=== PATIENT | female | born 1970 | race Caucasian/White ===

== ENCOUNTER → 2017-01-07 | Outpatient (CLI) | payer BC ==
[~2017-01-07] MED LIST: AMIT25TA9 PO; IBUP200C11 PO; LINA1CAP PO; NXM/40 PO; PANCCAP2 PO
--- NOTE | 2017-01-07 11:06 | DIAGNOSTIC IMAGING REPORT ---
MANDIBLE 4 VIEWS CLINICAL HISTORY: Left-sided facial mass/lump. FINDINGS: 4 views of the left mandible are obtained. No prior studies are available for comparison at the time of dictation. The skeletal structures are well mineralized. No fracture is seen. There is no evidence of bony mass. The temporomandibular joints appear maintained. The visualized paranasal sinuses appear clear. The bony orbits are intact as imaged. The mastoid air cells appear clear. The imaged calvarium appears preserved. IMPRESSION: Unremarkable radiographic assessment of the mandible. Electronically signed by: Christiano Briseno M.D. 01/07/2017 11:05 AM Dictated Date/Time: 01/07/2017 11:03 AM
== END | disposition home or self-care (01) ==
LOC: C.RADBC 10:32
PROVIDERS: ATTEND Family Medicine
DX: R22.0 Localized swelling, mass and lump, head (principal)

== ENCOUNTER → 2017-03-12 | Outpatient (CLI) | payer BC ==
[~2017-03-12] MED LIST changes: +GADAVIST IV PRN
--- NOTE | 2017-03-13 08:14 | MAMMOGRAPHY REPORT ---
BREAST MRI OF BOTH BREASTS : 03/12/2017 CLINICAL HISTORY: 46-year-old woman found to have a suspicious cluster of microcalcifications within the lateral left breast which was biopsied 12/10/2016 and yielded DCIS. Subsequent needle localiza tion 3 in the left breast yielded 2 areas of DCIS and one area of ADH. Patient presents for MRI ev aluation to assess extent of disease and rule out contralateral disease. COMPARISON: Comparison is made to exams dated: 08/23/2009 mammogram - [facility], 09/25/2009 l ocalization, and 09/25/2009 specimen - [facility]; prior screening mammograms date d 07/27/2010, 07/29/2011, 07/31/2012, 08/04/2013, 08/05/2014, 08/18/2015, 09/12/2015, 03/12/2016, di agnostic mammogram and ultrasound dated 11/28/2016, stereotactic biopsy dated 12/10/2016 and needle localization dated 01/16/2017. TECHNIQUE: Using a 1.5 Kindra magnet and dedicated breast coil, multisequence axial images were obtai jose alfredo through the breasts. After uneventful IV administration of 5.5 mL of Gadavist, dynamic multipha se contrast-enhanced axial images, and sagittal postcontrast were obtained. Temporal subtraction ax ial images and 3-D MIP images are provided. Everything was then reviewed on a 3-D workstation, [facility] ([facility] S. FINDINGS: Left breast: There is moderate background parenchymal enhancement. There are foci of susceptibility artifact in the lateral posterior left breast, at the site of recent surgical excision. There are multiple regions of clumped non-mass enhancement in the left breast with corresponding mixed kinetic s, but many of the nodular foci of enhancement demonstrate central washout and peripheral plateau ki netics which are suspicious. The most confluent regions of non-mass enhancement are in the inferior aspect of the left breast from the anterior one third to posterior one third approximate 5:00 throu gh 7:00 axes, and in the superior left breast, 9:00 through 2:00. Foci of clumped non-mass enhancem ent around the surgical site and also demonstrate central washout kinetics. If breast conservation therapy is being considered, would recommend second look ultrasound in the left upper inner or lower inner quadrant to assess for possible multicentric disease. No suspicious left axillary lymphadeno luc. No focal skin thickening or nipple retraction. Right breast: There is moderate background parenchymal enhancement. There are multiple regions of c lumped non-mass enhancement in the right breast, with corresponding mixed kinetics that appear simil ar to the left breast. The most confluent areas of non-mass enhancement are in the upper outer 9:00 through 12:00 right breast and including the 1:00 axis, and also in the lower inner quadrant of the right breast. However, there is more masslike enhancement in the posterior retroareolar right adon[address] st (image 60/116), and in the 5:00 to 6:00 posterior right breast (image 73/116). These masses eun ure 6.8 x 6.6 x 7.0 mm and 5.0 x 5.0 x 5.0 mm, respectively. Would recommend targeted ultrasound th roughout the right breast to assess for the most suspicious abnormalities and would recommend tissue sampling and at least 2 quadrants to assess for DCIS, given the very similar appearance and enhance ment pattern of the right breast to the contralateral left breast. Could focus in the retroareolar and lower inner quadrants to assess for the dominant areas of enhancement. No suspicious right axil suzanne lymphadenopathy. No focal skin thickening or nipple retraction. IMPRESSION: ACR BI-RADS CATEGORY 4B: INTERMEDIATE SUSPICION FOR MALIGNANCY 1. There are multiple regions of clumped non-mass enhancement within both breasts that is nearly sy mmetric bilaterally. Many of the nodular foci of enhancement demonstrate suspicious washout kinetic s and these findings are concerning for diffuse bilateral disease. There is also evidence of previo us surgery in the left lateral breast from recent excisional biopsies. 2. If multicentric disease has not been proven the left breast, and patient is considering breast c onservation therapy, would recommend targeted second look ultrasound in the upper inner or lower inn er quadrant and possible ultrasound-guided core biopsy. 3. Targeted second look ultrasound of the right breast is recommended, with attention to the domina nt areas of masslike enhancement in the posterior retroareolar and 5:00 to 6:[address], with possible ultrasound-guided core needle biopsy. 4. No suspicious axillary lymphadenopathy. The patient will be called to schedule an appointment. Letty Rivers M.D. ay/:03/12/2017 22:35:14 Estimating Engineer: flat hammerer, [facility] letter sent: Addl Imaging 0 BI-RADS Code: ACR BI-RADS Category 4B: Intermediate Suspicion For Malignancy
== END | disposition home or self-care (01) ==
LOC: C.MRI 12:36
PROVIDERS: ATTEND Surgery
DX: D05.12 Intraductal carcinoma in situ of left breast (principal)

== ENCOUNTER → 2017-03-21 | Outpatient (CLI) | payer BC ==
[~2017-03-21] MED LIST changes: -GADAVIST IV PRN
--- NOTE | 2017-03-21 10:21 | Discharge Instructions ---
Discharge Instructions Procedure Procedure Date: March 21, 2017. Reason for visit: Rt Mass/2ND Look Us And Poss Biopsy. Discharge Discharge Date: March 21, 2017. Discharge Diagnosis: status post breast biopsy Instructions Activity Recommendations: Additional Limitations (see below) Return to School/Work: no limitations Recommended Home Diet: No Limitations Provider Instructions: ACTIVITY RECOMMENDATIONS: * No lifting, pushing, pulling or exercising the affected side for three days. RETURN TO SCHOOL/WORK: * You may return to work/school after the procedure, but do not perform any strenuous activities for 24 to 48 hours. MEDICATIONS: * Tylenol (two 325 mg) every four to six hours if needed for mild pain (if not allergic to Tylenol). DIET: * Resume previous diet. SPECIAL CARE INSTRUCTIONS: * Keep biopsy site dry for 24 hours. May shower after 24 hours, but do not soak (bathe) incision. * May remove Tegaderm (plastic patch) tomorrow AFTER showering. * Leave the steri-strips on for one week. Allow the steri-strips to fall off by themselves. If not off after one week, you may remove them. You may place a Bandaid crosswise over the strips, if desired. * Apply ice 10 minutes on and 10 minutes off as needed. * Wear a bra at bedtime to sleep more comfortably for 2-3 days. * Your referring physician should have the results after approximately 5 to 7 business days. * Call for unusual bleeding, fever, drainage, etc or if you have any questions call during normal business hours or after hours call Dr Blake, . FOLLOW UP VISIT: Follow-up with Referring Physician as scheduled. Allergies Coded Allergies: No Known Allergies (Verified Allergy, Unknown, 01/20/08) Damion Rivera Recommendations: Call your doctor if: * Temperature above 101 degrees * Pain not relieved by pain medicine ordered * There is increased drainage or redness from any incision * You have any unanswered questions or concerns. Your Doctors Instructions noted above were prepared by provider Renetta Blake. Patient Signature Section: Patient Instructions Signature Page Katelin Hughes Patient (or Guardian) Signature/Date: I have read and understand the instructions given to me by my caregivers. Caregiver/RN/Doctor Signature/Date: The above-named patient and/or guardian has received patient instructions on this date. + Original Patient Signature Page (only) stays with chart. Please make copy for patient.
--- NOTE | 2017-03-21 13:10 | MAMMOGRAPHY REPORT ---
THIS REPORT HAS BEEN AMENDED. AMENDMENT: 03/26/2017 Renetta Blake M.D. The pathology results from ultrasound-guided biopsy of a right 12:00 breast mass were reviewed on . 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 After discussion with Dr. Barraza over the telephone, th e patient has decided to have bilateral mastectomies, therefore, no further biopsies are recommended . ULTRASOUND GUIDED BIOPSY RIGHT BREAST: 03/21/2017 CLINICAL HISTORY: Right 12:00 breast mass. PATIENT CONSENT: The procedure, risks and benefits were discussed with the patient and informed writ ten consent was obtained. A timeout was performed immediately prior to the procedure. PROCEDURE DESCRIPTION: With ultrasound guidance, aseptic technique, and lidocaine as the local anest hetic (1% lidocaine to anesthetize the skin and 1% lidocaine with epinephrine to anesthetize the richy per tissues), the mass of concern in the right 12:00 breast was sampled 4 times with a 14-gauge Achi michell biopsy needle. Immediately thereafter, with ultrasound guidance, aseptic technique, and lidocai ne as the local anesthetic, a metallic localizer clip was placed centrally in the mass. Direct pres sure was applied to the site immediately post procedure and hemostasis was achieved. Postprocedure unilateral mammograms were performed to confirm placement of the clip in the expected location of th e breast mass. The patient tolerated the procedure without complication. She was given wound care instructions. The specimens were sent to pathology for analysis. COMPARISON: Comparison is made to exams dated: 03/21/2017 ultrasound, 03/12/2017 breast MRI - [facility], 01/16/2017 mammogram, and 12/10/2016 mammogram. IMPRESSION: ULTRASOUND GUIDED BIOPSY Ultrasound guided core needle biopsy of the right 12:00 breast mass, with clip placement. The patie nt will receive pathology results from her referring provider. The pathology results also will be reviewed by myself and Dr. Rivers, and we will decide at that t thomas if any further biopsies of the right breast need to be performed. Renetta Blake M.D. /:03/21/2017 10:40:15 Cinder Pitman: Renetta COE)(Petr), [facility]
--- NOTE | 2017-03-21 13:12 | MAMMOGRAPHY REPORT ---
SECONDLOOK ULTRASOUND OF RIGHT BREAST: 03/21/2017 CLINICAL HISTORY: Multiple areas of non-mass enhancement and masslike enhancement in the right breas t seen on recent breast MRI. Known biopsy-proven malignancy in the left breast. The patient report s she will be undergoing left mastectomy. COMPARISON: Comparison is made to exams dated: 03/12/2017 breast MRI - [facility], 01/16/2017 mammogram, 12/10/2016 mammogram, 11/28/2016 mammogram, 11/28/2016 ultrasound, and 03/12/2016 m ammogram. TECHNIQUE: Real-time targeted ultrasound of the right breast was performed. FINDINGS: Real-time, high-resolution ultrasound was performed throughout the right breast in the re gion of the areas of abnormal enhancement seen on the breast MRI, with specific attention paid to th e dominant areas of masslike enhancement in the right subareolar and 5 and 6:00 breast. A few round /oval anechoic benign cysts were seen during the exam. No suspicious mass was seen within the right 5 and 6:00 breast. An oval hypoechoic mass with non-circumscribed margins measuring 7 x 3 x 6 mm i s seen within the right breast at 12:00, 2 cm from the nipple. It is unclear if this corresponds wi th any of the abnormal enhancement seen on the breast MRI, however, it could potentially correspond with the nodular area seen within the right superior subareolar breast on the MRI. After discussion with the patient that this may not correspond with any of the abnormal MRI findings and there may b e a need for other future biopsies to fully workup the right breast, the decision was made to procee d to biopsy of this mass. IMPRESSION: ACR BI-RADS CATEGORY 4: SUSPICIOUS - FOLLOW-UP RECOMMENDED Hypoechoic 7 mm mass seen within the right breast at 12:00, 2 cm from the nipple. This could potent ially correspond with one of the areas of abnormal enhancement on the recent breast MRI. The decisi on was made to proceed to ultrasound guided biopsy, which was performed immediately after the workup . The patient was verbally notified of the results. Renetta Blake M.D. /:03/21/2017 10:37:49 Salon/Spa Manager: Renetta ESCOBAR(Arthur)(M), [facility] BI-RADS Code: ACR BI-RADS Category 4: Suspicious
--- NOTE | 2017-03-21 13:12 | MAMMOGRAPHY REPORT ---
UNILATERAL RIGHT DIGITAL DIAGNOSTIC MAMMOGRAM TOMOSYNTHESIS: 03/21/2017 CLINICAL HISTORY: Status post ultrasound guided biopsy of a right 12:00 breast mass. TECHNIQUE: Breast tomosynthesis in addition to standard 2D mammography was performed. Postprocedur al right CC and ML tomosynthesis images including C views were obtained. COMPARISON: Comparison is made to exams dated: 03/21/2017 ultrasound, 03/12/2017 breast MRI - [facility], 12/10/2016 mammogram, and 01/16/2017 mammogram. BREAST COMPOSITION: The tissue of the right breast is extremely dense, which lowers the sensitivity of mammography. FINDINGS: A new biopsy marker clip is seen in the right breast status post ultrasound-guided biopsy of a right 12:00 breast mass. No significant postbiopsy hematoma is seen. IMPRESSION: POST PROCEDURE IMAGING FOR MARKER PLACEMENT New biopsy marker clip status post right breast ultrasound guided biopsy. Pathology results are pen ding. Approximately 10% of breast cancers are not detected with mammography. A negative mammographic repor t should not delay biopsy if a clinically suggestive mass is present. Renetta Blake M.D. ah/:03/21/2017 10:31:00 Senior Search Marketing Analyst: Renetta Biggs RT(R)(M), [facility] BI-RADS Code: Post Procedure Imaging For Marker Placement
== END | disposition home or self-care (01) ==
LOC: C.MAMM 09:02
PROVIDERS: ATTEND Surgery
DX: D24.1 Benign neoplasm of right breast (principal); N60.89 Other benign mammary dysplasias of unspecified breast

== ENCOUNTER → 2018-03-12 | Outpatient (CLI) | payer OTHER ==
--- NOTE | 2018-03-13 07:50 | MAMMOGRAPHY REPORT ---
UNILATERAL RIGHT DIGITAL DIAGNOSTIC MAMMOGRAM TOMOSYNTHESIS WITH CAD AND TARGETED RIGHT ULTRASOUND: CLINICAL HISTORY: History of left breast cancer status post bilateral nipple sparing mastectomies per formed April 2017 as well as bilateral implant reconstruction performed July 2017. The patient r eports a new palpable right breast lump for approximately 1 month. TECHNIQUE: Breast tomosynthesis in addition to standard 2D mammography was performed. Current study was also evaluated with a Computer Aided Detection (CAD) system. Right CC and MLO implant displaced 2D and tomosynthesis images were obtained. COMPARISON: Comparison is made to exams dated: 03/12/2018 ultrasound, 03/21/2017 ultrasound biopsy, mammogram, 03/21/2017 ultrasound, 03/12/2017 breast MRI - [facility], and 01/01 mammogram. BREAST COMPOSITION: There are scattered areas of fibroglandular density in the right breast. FINDINGS: First, targeted ultrasound was performed of the area of the palpable lump pointed out by th e patient in the right reconstructed breast at approximately 3:00, 4 cm from the nipple. At the site of the palpable lump there is an ill-defined hypoechoic region immediately anterior to the implant w hich is difficult to measure due to the ill-defined nature but measures approximately 7 x 15 x 4 mm. Mammograms were obtained to further evaluate this area. A triangle marker collado the site of the palp able lump pointed out by the patient in the right 3:00 breast. No suspicious masses or other suspici ous mammographic abnormalities are seen in this region mammographically. The remainder of the visual ized right reconstructed breast demonstrates no suspicious masses or other suspicious findings. The finding likely represents postsurgical changes/fat necrosis, however, the finding is nonspecific on imaging. Therefore, recommend ultrasound-guided biopsy for further evaluation. IMPRESSION: ACR BI-RADS CATEGORY 4: SUSPICIOUS, TARGETED ULTRASOUND ACR BI-RADS CATEGORY 4: SUSPICIO US Ill-defined 15 mm hypoechoic region in the right 3:00 breast at the site of the palpable lump pointed out by the patient. No corresponding mammographic abnormality is evident. While this finding could represent postsurgical changes/fat necrosis, the finding is nonspecific on imaging. Recommend attem pted ultrasound-guided core needle biopsy for further evaluation, however, this may be difficult as t he finding is located immediately anterior to the breast implant. A phone call was made to the physician's office to confirm faxed results were received. The patient has been verbally notified of the results. She tentatively scheduled the biopsy before leaving the [facility]. Approximately 10% of breast cancers are not detected with mammography. A negative mammographic report should not delay biopsy if a clinically suggestive mass is present. Renetta Blake M.D. ah/:03/12/2018 12:10:11 News Reporter: Petrona Martinez, [facility] letter sent: Abnormal 4/5 BI-RADS Code: ACR BI-RADS Category 4: Suspicious Ultrasound BI-RADS: ACR BI-RADS Category 4: Suspici ous
== END | disposition home or self-care (01) ==
LOC: C.MAMM 09:41
PROVIDERS: ATTEND Surgery Plastic and Reconstructive Surgery
DX: N63.10 Unspecified lump in the right breast, unspecified quadrant (principal)

== ENCOUNTER → 2018-03-25 | Outpatient (CLI) | payer OTHER ==
--- NOTE | 2018-03-25 08:41 | Discharge Instructions ---
Discharge Instructions Procedure Procedure Date: March 25, 2018. Reason for visit: Right Hypoechoic Region/Implants. Discharge Discharge Date: March 25, 2018. Discharge Diagnosis: status post breast biopsy Instructions Activity Recommendations: Additional Limitations Return to School/Work: no limitations Recommended Home Diet: No Limitations Provider Instructions: ACTIVITY RECOMMENDATIONS: * No lifting, pushing, pulling or exercising the affected side for three days. RETURN TO SCHOOL/WORK: * You may return to work/school after the procedure, but do not perform any strenuous activities for 24 to 48 hours. MEDICATIONS: * Tylenol (two 325 mg) every four to six hours if needed for mild pain (if not allergic to Tylenol). DIET: * Resume previous diet. SPECIAL CARE INSTRUCTIONS: * Keep biopsy site dry for 24 hours. May shower after 24 hours, but do not soak (bathe) incision. * May remove Tegaderm (plastic patch) tomorrow AFTER showering. * Leave the steri-strips on for one week. Allow the steri-strips to fall off by themselves. If not off after one week, you may remove them. You may place a Bandaid crosswise over the strips, if desired. * Apply ice 10 minutes on and 10 minutes off as needed. * Wear a bra at bedtime to sleep more comfortably for 2-3 days. * Your referring physician should have the results after approximately 5 to 7 business days. * Call for unusual bleeding, fever, drainage, etc or if you have any questions call during normal business hours or after hours call Dr Blake, [phone]. FOLLOW UP VISIT: Follow-up with Referring Physician as scheduled. Allergies Coded Allergies: No Known Allergies (Verified Allergy, Unknown, 01/20/08) Damion Rivera Recommendations: Call your doctor if: * Temperature above 101 degrees * Pain not relieved by pain medicine ordered * There is increased drainage or redness from any incision * You have any unanswered questions or concerns. Your Doctors Instructions noted above were prepared by provider Renetta Blake. Patient Signature Section: Patient Instructions Signature Page Katelin Hughes Patient (or Guardian) Signature/Date: I have read and understand the instructions given to me by my caregivers. Caregiver/RN/Doctor Signature/Date: The above-named patient and/or guardian has received patient instructions on this date. + Original Patient Signature Page (only) stays with chart. Please make copy for patient.
--- NOTE | 2018-03-25 14:20 | MAMMOGRAPHY REPORT ---
ULTRASOUND GUIDED BIOPSY RIGHT BREAST: 03/25/2018 CLINICAL HISTORY: Ill-defined hypoechoic region in the 3 o'clock position of the right reconstructed breast at the site of a palpable lump. PATIENT CONSENT: The procedure, risks and benefits were discussed with the patient and informed writt en consent was obtained. A timeout was performed immediately prior to the procedure. PROCEDURE DESCRIPTION: With ultrasound guidance, aseptic technique, and lidocaine as the local anesth etic (1% lidocaine), the palpable ill-defined hypoechoic region in the right 3:00 reconstructed breas t was sampled 2 times with an 18-gauge quick core biopsy needle. No further core samples could be o btained with the Quick-Core needle as the needle could not be advanced into the region to perform bio psy. An attempt was also made with a larger 14-gauge achieve biopsy needle although the needle also could not be advanced into the region to perform biopsy with an open bevel technique. Therefore, the decision was made to perform fine-needle aspiration of the region as well. Three passes were made i nto the region using 18 gauge needles attached to syringes. A sample was placed on a slide and the r emainder of the samples were sent in CytoLyt to cytology for analysis. The core biopsy samples were also sent in formalin to the laboratory for analysis. Immediately thereafter, with ultrasound guidance, aseptic technique, and lidocaine as the local anest hetic, a ribbon-shaped metallic localizer clip was placed at the biopsy site. Direct pressure was ap plied to the site immediately post procedure and hemostasis was achieved. The patient tolerated the procedure without complication. She was given wound care instructions. COMPARISON: Comparison is made to exams dated: 03/12/2018 mammogram, 03/12/2018 ultrasound, 03/21/2017 ultrasound biopsy, 03/21/2017 mammogram, 03/21/2017 ultrasound, and 03/12/2017 breast MRI - [facility]. IMPRESSION: ULTRASOUND GUIDED BIOPSY Ultrasound-guided core needle biopsy as well as fine-needle aspiration performed of the palpable ill- defined hypoechoic region in the 3 o'clock position of the right reconstructed breast with clip place ment. The patient will receive pathology results from her referring provider. Renetta Blake M.D. ah/:03/25/2018 09:16:48 Traffic Counter: Palmer COE)(M), [facility]
== END | disposition home or self-care (01) ==
LOC: C.MAMM 07:45
PROVIDERS: ATTEND Surgery Plastic and Reconstructive Surgery
DX: N63.10 Unspecified lump in the right breast, unspecified quadrant (principal); Z98.82 Breast implant status